=== PATIENT | female | born 1985 | race Caucasian/White ===

== ENCOUNTER 2018-05-07 07:08 | Inpatient (IN) | payer OTHER ==
[~2018-05-07] VITALS: Ht 167.6 cm; Wt 3.6 kg
[2018-05-07] MEDS ORDERED: INTEGRA CAPSUL1 EACH PO (09:56)
[2018-05-07] MEDS ORDERED: PRENATAL FORMU1 EAC1 PO (09:56)
== END 2018-05-10 14:49 | disposition home or self-care (01) | DRG 766 ==
LOC: LDR 07:08 → O/R 07:08 → OB/GYN 07:08 → O/R 15:40 → OB/GYN 17:51
PROVIDERS: Specialist
PROC: 10907ZC Drainage of Amniotic Fluid, Therapeutic from Products of Conception, Via Natural or Artificial Opening (ICD-10-PCS; 2018-05-07)
PROC: 4A1HXCZ Monitoring of Products of Conception, Cardiac Rate, External Approach (ICD-10-PCS; 2018-05-07)
PROC: 10D00Z1 Extraction of Products of Conception, Low, Open Approach (ICD-10-PCS; principal; 2018-05-07 15:00)
DX: O65.4 Obstructed labor due to fetopelvic disproportion, unspecified (principal); Z3A.39 39 weeks gestation of pregnancy; Z37.0 Single live birth